=== PATIENT | male | born 1965 | race Two or more races ===

== ENCOUNTER → 2023-01-02 | Outpatient (CLI) | payer BC | END | disposition home or self-care (01) | LOC: LAB 10:11 | PROVIDERS: ATTEND Internal Medicine | DX: R73.03 Prediabetes (principal); E78.5 Hyperlipidemia, unspecified | CPT/HCPCS: 82270 ==

== ENCOUNTER → 2023-05-29 | Outpatient (CLI) | payer BC ==
[2023-05-29 08:49] LABS: Chloride 107 mmol/L (98-107); Potassium 4.5 mmol/L (3.5-5.1); Sodium 140 mmol/L (136-145)
[2023-05-29 08:50] LABS: Anion Gap 5 (5-15); Carbon Dioxide 28 mmol/L (20-30)
[2023-05-29 08:55] LABS: BUN/Creatinine Ratio 13.3 (10.0-20.0); Blood Urea Nitrogen 12 mg/dL (9-23); Glucose 106 mg/dL (74-106); Triglycerides 86 mg/dL (< 150)
[2023-05-29 08:56] LABS: LDL Cholesterol 132 mg/dL (< 100)
[2023-05-29 08:57] LABS: Cholesterol 173 mg/dL (< 200); HDL Cholesterol 33 mg/dL (40-59)
[2023-05-29 09:41] LABS: Creatinine, Urine 137.44 mg/dL (30.0-125.0)
[2023-05-29 09:43] LABS: Micro Albumin < 3.0 mg/L (<30.0)
== END | disposition home or self-care (01) ==
LOC: LAB 08:19
PROVIDERS: ATTEND Internal Medicine
DX: E78.5 Hyperlipidemia, unspecified (principal); R73.03 Prediabetes
CPT/HCPCS: 36415; 80048; 80061; 82043; 82570

== ENCOUNTER → 2023-06-04 | Outpatient (CLI) | payer BC ==
[2023-06-04 16:41] LABS: Erythrocyte Sedimentation Rate 8 mm/hr (0-20)
[2023-06-05 08:07] LABS: Rheumatoid Arthritis Factor <10.0 IU/mL (<14.0)
[2023-06-05 12:06] LABS: Anti-Nuclear Antibody Direct Negative (Negative)
== END | disposition home or self-care (01) ==
LOC: LAB 15:27
PROVIDERS: ATTEND Internal Medicine
DX: E78.5 Hyperlipidemia, unspecified (principal); M25.562 Pain in left knee
CPT/HCPCS: 36415; 84550; 85652; 86038; 86431

== ENCOUNTER 2025-03-02 14:56 | Emergency (ER) | payer BC ==
[~2025-03-02] VITALS: Ht 182.9 cm; Wt 119.2 kg
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
[2025-03-02 16:09] LABS: Hematocrit 49.8 % (41.0-53.0); Hemoglobin 17.2 g/dL (13.5-17.5); Mean Corpuscular Hemoglobin 31.4 pg (28.0-32.0); Mean Corpuscular Volume 91.0 fL (80.0-100.0); Nucleated Red Blood Cells % 0.0 %
[2025-03-02 16:18] LABS: Potassium 4.2 mmol/L (3.5-5.1); Sodium 141 mmol/L (136-145)
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
[2025-03-02 16:19] LABS: Anion Gap 7 (5-15); Calcium 10.1 mg/dL (8.7-10.4); Carbon Dioxide 27 mmol/L (20-31); Chloride 107 mmol/L (98-107)
[2025-03-02 16:24] LABS: BUN/Creatinine Ratio 12.2 (10.0-20.0); Blood Urea Nitrogen 12 mg/dL (9-23); Glucose 91 mg/dL (74-106)
[2025-03-02 18:42] VITALS: BP 131/53; PULSE 75; RESP 20; TEMP 98.7; O2SAT 99
== END 2025-03-02 18:44 | disposition home or self-care (01) ==
LOC: ER 14:56
DX: G56.21 Lesion of ulnar nerve, right upper limb (principal); R53.1 Weakness; F17.210 Nicotine dependence, cigarettes, uncomplicated; Z88.5 Allergy status to narcotic agent
CPT/HCPCS: 36415; 70450; 80048; 85025

== ENCOUNTER 2025-07-17 10:03 | Emergency (ER) | payer BC ==
[~2025-07-17] VITALS: Ht 185.4 cm; Wt 130.6 kg
--- NOTE | 2025-07-17 10:48 | DVH ---
CLINICAL HISTORY: UPPER LEG PAIN AND SWELLING TECHNIQUE: Color and duplex doppler imagine of the left lower extremity veins was performed. Vessel compression if possible was also performed. COMPARISON: None FINDINGS: Left common femoral vein: Normal compressibility and flow. Left superficial femoral vein: Normal compressibility and flow. Left popliteal vein: Normal compressibility and flow. IMPRESSION: NO SONOGRAPHIC EVIDENCE FOR DEEP VENOUS THROMBOSIS IN THE LEFT LOWER EXTREMITY VEINS.
--- NOTE | 2025-07-17 11:38 | ED.PDOC ---
History of Present Illness HPI Comments 59 y/o obese M presents with c/c of left leg pain and swelling x3 days. Patient reports on progressively worsening symptoms following initial, unprovoked onset. 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 No recent fall or trauma. No previous history of DVT's in the past. Denies any chest pain, shortness of breath, or further acute symptoms. Chief Complaint: Lower Extremity Time Seen by MD: 11:00 Reviewed Notes: Nurses Notes, Allergies Allergies: Coded Allergies: Codeine (Verified Allergy, Unknown, 03/02/25) Information Source: Patient Mode of Arrival: Ambulatory Severity: Moderate Timing: Days Duration: Since onset Prehospital treatment: None Past Medical History PAST MEDICAL HISTORY: Denies Surgical History: Denies all surgeries Family History Family History: Family hx of heart cole Social History Smoker: Greater Than 1 Pack/Day Alcohol: Denies ETOH Use Drugs: Denies Drug Use Lives In: Home All Other Systems: Reviewed and Negative (Comprehensive review of systems are negative unless stated in HPI) Physical Exam General Appearance: Moderate Distress HEENT: Normal ENT Inspection, Pharynx Normal, TMs Normal Neck: Full Range of Motion, Non-Tender, Normal, Normal Inspection Respiratory: Chest Non-Tender, Lungs Clear, No Accessory Muscle Use, No Respiratory Distress, Normal Breath Sounds Cardiovascular: No Edema, No JVD, No Murmur, No Gallop, Normal Peripheral Pulses, Regular Rate/Rhythm Breast Exam: Deferred Gastrointestinal: No Organomegaly, Non Tender, No Pulsatile Mass, Normal Bowel Sounds, Soft Genitalia: Deferred Pelvic: Deferred Rectal: Deferred Extremities: No calf tenderness, Normal capillary refill, Normal inspection, Normal range of motion, Non-tender, No pedal edema Musculoskeletal : Apperance: Normal Neurologic: Alert, 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 Was a procedure done?: No Differential Dx Considerations may include: DVT's, fractures, contusions, sprain, strain, cellulitis, fluid retention, among others X-Ray, Labs, Meds, VS Vital Signs Date Time Temp Pulse Resp B/P (MAP) Pulse Ox O2 Delivery O2 Flow Rate FiO2 07/17/25 13:37 97.5 70 16 144/75 (98) 96 97.5 07/17/25 10:04 98.2 90 18 146/75 95 98.2 [facility] [id number] [facility] [id number] Ph: [phone] DIAGNOSTIC IMAGING Diagnostic Imaging Report : [id number] Signed PATIENT: DOLORES DANIELS ACCT: [id number] UNIT: [id number] : 1965 LOC: ER ROOM / BED: / AGE / SEX: 59 / M ADM STATUS: REG ER SERVICE 1006 ORDERING PHYSICIAN: SERGIO MORALES MD PROCEDURE(s): LLDVT - LT Lower DVT REASON: UPPER LEG PAIN AND SWELLING ORDER NUMBER(s): [id number], ACCESSION NUMBER(s): [id number] CLINICAL HISTORY: UPPER LEG PAIN AND SWELLING TECHNIQUE: Color and duplex doppler imagine of the left lower extremity veins was performed. Vessel compression if possible was also performed. COMPARISON: None FINDINGS: Left common femoral vein: Normal compressibility and flow. Left superficial femoral vein: Normal compressibility and flow. Left popliteal vein: Normal compressibility and flow. IMPRESSION: NO SONOGRAPHIC EVIDENCE FOR DEEP VENOUS THROMBOSIS IN THE LEFT LOWER EXTREMITY VEINS. ATED BY: KISHAN ABRAMS MD DICTATED DATE/TIME: 07/17/251044 SIGNED BY: KISHAN ABRAMS MD SIGNED DATE/TIME: 07/17/25 104 CC: Patient alert. Vitals stable. Came in because of left lower extremity swelling. Answering questions. Ultrasound reviewed does not show any acute changes. Explained to the patient. Was told to follow up with his primary care physician. Was told to come back if there is any problem. Time of 1ST Reevaluation: 11:30 Reevaluation 1ST: Unchanged Patient Education/Counseling: Diagnosis, Treatment, Other (need for admission ) Family Education/Counseling: No Family Present SEPSIS Sepsis Screen Date sepsis recognized/suspect: Jul 17, 2025 Time Sepsis recognized/suspect: 1005 Recent Procedure: No On Antibiotic Therapy: No Respiratory Rate >20: No Heart Rate >90: Yes Temp<36 C (96.8 F) or >38.3 C: No SBP <90 or MAP <65 mmHG: No New Acute Mental Status Change: No Is the patient on CPAP, BIPAP,: No Physician Orders Lt Lower Dvt (07/17/25 10:06) Vital Signs Date Time Temp Pulse Resp B/P (MAP) Pulse Ox O2 Delivery O2 Flow Rate FiO2 07/17/25 13:37 97.5 70 16 144/75 (98) 96 97.5 07/17/25 10:04 98.2 90 18 146/75 95 98.2 Departure 1 Departure Time of Disposition: 14:13 Impression: Primary Impression: Muscle strain Disposition: 01 HOME / SELF CARE / HOMELESS Condition: Good Discharged With: Self Critical Care Note Critical Care Time?: No Stability Stability form required: No Heart Score Heart Score: Heart Score Response (Comments) Value History N/A 0 EKG N/A 0 Age N/A 0 Risk Factors N/A 0 Troponin N/A 0 Total 0 I personally scribed for SERGIO MORALES MD ([email or web address]) on 07/17/25 at 11:38. Electronically submitted by Stanislav Maynard ([email or web address]). SERGIO MORALES MD Jul 17, 2025 11:38
[2025-07-17 16:14] VITALS: BP 138/64; PULSE 76; RESP 18; TEMP 98; O2SAT 98
== END 2025-07-17 17:28 | disposition home or self-care (01) ==
LOC: ER 10:03
DX: S86.912A Strain of unspecified muscle(s) and tendon(s) at lower leg level, left leg, initial encounter (principal); F17.210 Nicotine dependence, cigarettes, uncomplicated; Z88.5 Allergy status to narcotic agent; X58.XXXA Exposure to other specified factors, initial encounter; Y93.89 Activity, other specified; Y92.89 Other specified places as the place of occurrence of the external cause; Y99.8 Other external cause status
CPT/HCPCS: 93971